=== PATIENT | female | born 1930 | race Caucasian/White ===

== ENCOUNTER 2021-03-20 20:46 | Inpatient (IN) | payer MEDICARE ==
[~2021-03-20] VITALS: Wt 77.1 kg
[2021-03-20 20:55] VITALS: BP 144/48
[2021-03-21] VITALS (13 sets, daily range): BP systolic 101–153; BP diastolic 47–72
[2021-03-21 01:05] LABS: BASO % 0.2 % (0.0-1.0); EOS % 0.4 % (1.0-4.0); HEMATOCRIT 39.4 % (37.0-47.0); LYMPH # 0.6 10*3/uL (1.3-4.4); LYMPH % 12.6 % (27.0-41.0); MEAN CELL VOLUME 93.4 fl (81.0-99.0); MEAN CORPUSCULAR HGB 29.4 pg (27.0-31.0); MEAN CORPUSCULAR HGB CONC 31.5 g/dl (33.0-37.0); MEAN PLATELET VOLUME 9.5 fl (9.6-12.3); MONO # 0.5 10*3/uL (0.1-1.0); MONO % 11.8 % (3.0-9.0); NEUT # 3.4 10*3/uL (2.3-7.9); NEUT % 74.6 % (47.0-73.0); PLATELET COUNT AUTOMATED 178 10*3/uL (130-400); RED BLOOD COUNT 4.22 10*6/uL (4.10-5.10); RED CELL DISTRI WIDTH 13.9 % (0-14.5); WHITE BLOOD COUNT 4.5 10*3/uL (4.8-10.8)
[2021-03-21 01:21] LABS: ALBUMIN 3.1 gm/dl (3.1-4.5); ALKALINE PHOSPHATASE 71 U/L (45-117); BUN 20 mg/dl (7-24); CHLORIDE 111 mmol/L (98-107); CREATININE 0.84 mg/dL (0.55-1.02); POTASSIUM 4.1 mmol/L (3.5-5.1); SGOT/AST 24 IU/L (3-35); SGPT/ALT 27 U/L (12-78); SODIUM 142 mmol/L (136-145); TOTAL PROTEIN 7.1 gm/dL (6.4-8.2)
[2021-03-21] MEDS ORDERED: ATORVASTATIN CA20 M1 PO (04:46)
[2021-03-21] MEDS ORDERED: AMLODIPINE BESYL5 MG PO (04:46)
[2021-03-21] MEDS ORDERED: MYRBETRIQ25 M1 PO (04:47)
[2021-03-21] MEDS ORDERED: LEVOTHYROXINE150 MCG PO (04:47)
[2021-03-21] MEDS ORDERED: POTASSIUM CHLO20 ME4 PO (04:48)
[2021-03-21] MEDS ORDERED: NAMZARIC 28 MG1 EACH PO (04:48)
[2021-03-21] MEDS ORDERED: TRAZODONE150 MG PO (04:49)
[2021-03-21] MEDS ORDERED: VALSARTAN160 MG PO (04:49)
[2021-03-21 05:17] LABS: BUN 20 mg/dl (7-24); CHLORIDE 111 mmol/L (98-107); CHOLESTEROL 98 mg/dL (<200); CREATININE 0.79 mg/dL (0.55-1.02); LDH 177 U/L (84-246); LDL CHOLESTEROL 36 mg/dL (9-159); POTASSIUM 3.7 mmol/L (3.5-5.1); SODIUM 142 mmol/L (136-145); TRIGLYCERIDES 80 mg/dl (<150)
[2021-03-21 06:09] LABS: BASO % 0.3 % (0.0-1.0); EOS % 0.3 % (1.0-4.0); HEMATOCRIT 38.4 % (37.0-47.0); LYMPH # 0.6 10*3/uL (1.3-4.4); LYMPH % 16.8 % (27.0-41.0); MEAN CELL VOLUME 93.4 fl (81.0-99.0); MEAN CORPUSCULAR HGB 29.4 pg (27.0-31.0); MEAN CORPUSCULAR HGB CONC 31.5 g/dl (33.0-37.0); MEAN PLATELET VOLUME 10.3 fl (9.6-12.3); MONO # 0.5 10*3/uL (0.1-1.0); MONO % 15.3 % (3.0-9.0); NEUT # 2.3 10*3/uL (2.3-7.9); PLATELET COUNT AUTOMATED 170 10*3/uL (130-400); RED BLOOD COUNT 4.11 10*6/uL (4.10-5.10); RED CELL DISTRI WIDTH 13.8 % (0-14.5); WHITE BLOOD COUNT 3.5 10*3/uL (4.8-10.8)
[2021-03-22 08:00] VITALS: BP 113/86
[2021-03-22 12:00] VITALS: BP 147/76
[2021-03-22 16:00] VITALS: BP 149/74
[2021-03-22 20:00] VITALS: BP 118/70
[2021-03-23] VITALS: BP 148/86
[2021-03-23 12:00] VITALS: BP 116/76
[2021-03-23 16:00] VITALS: BP 124/66
[2021-03-23 20:00] VITALS: BP 160/66
[2021-03-24] VITALS: BP 150/60
[2021-03-24 06:18] LABS: ALBUMIN 2.8 gm/dl (3.1-4.5); ALKALINE PHOSPHATASE 67 U/L (45-117); BUN 35 mg/dl (7-24); CHLORIDE 113 mmol/L (98-107); CREATININE 0.76 mg/dL (0.55-1.02); HEMATOCRIT 41.3 % (37.0-47.0); LYMPH # 0.8 10*3/uL (1.3-4.4); LYMPH % 10.4 % (27.0-41.0); MEAN CORPUSCULAR HGB 29.3 pg (27.0-31.0); MEAN CORPUSCULAR HGB CONC 32.2 g/dl (33.0-37.0); MEAN PLATELET VOLUME 10.5 fl (9.6-12.3); MONO # 0.7 10*3/uL (0.1-1.0); MONO % 9.7 % (3.0-9.0); NEUT # 5.7 10*3/uL (2.3-7.9); NEUT % 79.3 % (47.0-73.0); PLATELET COUNT AUTOMATED 198 10*3/uL (130-400); POTASSIUM 3.9 mmol/L (3.5-5.1); RED BLOOD COUNT 4.54 10*6/uL (4.10-5.10); RED CELL DISTRI WIDTH 13.6 % (0-14.5); SGOT/AST 39 IU/L (3-35); SGPT/ALT 37 U/L (12-78); SODIUM 147 mmol/L (136-145); WHITE BLOOD COUNT 7.2 10*3/uL (4.8-10.8)
[2021-03-24 08:00] VITALS: BP 180/79
[2021-03-24 10:00] VITALS: BP 143/67
[2021-03-24 12:00] VITALS: BP 130/78
[2021-03-24] MEDS ORDERED: ARICEPT10 M1 PO (13:14)
[2021-03-24] MEDS ORDERED: DECADRON4 MG PO (13:14)
[2021-03-24] MEDS ORDERED: OXYGEN NAS (13:14)
[2021-03-24 16:00] VITALS: BP 144/69
[2021-03-24 20:00] VITALS: BP 139/97
[2021-03-25] VITALS: BP 133/77
[2021-03-25 08:00] VITALS: BP 147/61
[2021-03-25 12:00] VITALS: BP 143/59
== END 2021-03-25 14:41 | DRG 177 ==
LOC: ED 20:46 → 4E 03-21 02:52 → EDHOLD 03-21 02:52 → 4E 03-21 16:55
PROVIDERS: Emergency Medicine; Hospitalist; Student in an Organized Health Care Education/Training Program; ADMIT Emergency Medicine; ATTEND Emergency Medicine
PROC: XW033E5 Introduction of Remdesivir Anti-infective into Peripheral Vein, Percutaneous Approach, New Technology Group 5 (ICD-10-PCS; principal; 2021-03-21)
DX: U07.1 COVID-19 (principal); J96.01 Acute respiratory failure with hypoxia; E44.0 Moderate protein-calorie malnutrition; E03.9 Hypothyroidism, unspecified; F03.90 Unspecified dementia, unspecified severity, without behavioral disturbance, psychotic disturbance, mood disturbance, and anxiety; I10 Essential (primary) hypertension; E55.9 Vitamin D deficiency, unspecified; E78.2 Mixed hyperlipidemia; E87.8 Other disorders of electrolyte and fluid balance, not elsewhere classified; W19.XXXA Unspecified fall, initial encounter; Y92.89 Other specified places as the place of occurrence of the external cause; Y93.89 Activity, other specified; Y99.8 Other external cause status; Z79.899 Other long term (current) drug therapy